=== PATIENT | female | born 2005 | race African-American/Black ===

== ENCOUNTER 2025-04-04 22:13 | Emergency (ER) | payer OTHER, SELFPAY ==
[2025-04-04 22:18] VITALS: BP 124/87
[2025-04-04 22:33] VITALS: BMI 23.9
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
[2025-04-05] MEDS: AUGMENTIN 875 MG/125 MG 1 TABLET PO (01:41)
[2025-04-05] MEDS: ADACEL 0.5 ML IM (01:41)
[2025-04-05] MEDS: MOTRIN 600 MG PO (01:41)
[2025-04-05] MEDS: UNASYN IV (01:59)
[2025-04-05 02:31] VITALS: BP 107/78
== END 2025-04-05 02:45 | disposition home or self-care (01) ==
LOC: EMR 22:13
PROVIDERS: EMERGENCY PHYSICIAN Student in an Organized Health Care Education/Training Program
DX: S52.201A Unspecified fracture of shaft of right ulna, initial encounter for closed fracture (principal); W54.0XXA Bitten by dog, initial encounter; Z23 Encounter for immunization
CPT/HCPCS: 99283; 96365; 90471; 73060; 73090; 73130; 90715